=== PATIENT | female | born 1950 | race Caucasian/White ===

== ENCOUNTER 2018-09-17 22:43 | Inpatient (IN) | payer MEDICARE, MEDICAID | END 2018-09-19 12:20 | disposition home or self-care (01) | LOC: ED HOLD 09-18 01:04 → ER 22:43 → ICU 2S 09-18 03:23 | DX: I13.2 Hypertensive heart and chronic kidney disease with heart failure and with stage 5 chronic kidney disease, or end stage renal disease (principal); J96.00 Acute respiratory failure, unspecified whether with hypoxia or hypercapnia; N18.6 End stage renal disease; I16.9 Hypertensive crisis, unspecified; I50.9 Heart failure, unspecified ==

== ENCOUNTER 2019-02-04 06:29 | Day surgery (SDC) | payer MEDICARE, MEDICAID ==
[~2019-02-04 06:29] MED LIST: AMLO10TA4 PO; ATOR40TA PO; FAMO20TA8 PO; METO-411 PO; SEVE800T8 PO
[2019-02-04 07:30] VITALS: BP 116/81
[2019-02-04 08:36] LABS: ALBUMIN 3.7 G/DL (3.4-5.0); ANION GAP 11 (8-16); BLOOD UREA NITROGEN 41 MG/DL (7-18); BUN/CREATININE RATIO 4.9 (6.6-38.0); CALCIUM 10.2 MG/DL (8.5-10.1); CHLORIDE 101 MMOL/L (99-107); CREATININE 8.38 MG/DL (0.40-0.90); POTASSIUM 4.5 MMOL/L (3.5-5.1); SODIUM 143 MMOL/L (135-145); TOTAL CARBON DIOXIDE 31.2 MMOL/L (24-32); eGFR 6 ML/MIN
[2019-02-04 08:44] LABS: GLUCOSE 112 MG/DL (70-104)
[2019-02-04] MEDS ORDERED: fentaNYL/PF 50MCG/1 ML 2ML syringe IV PRN (08:45)
[2019-02-04] MEDS ORDERED: LIDOcaine 1% (10mg/ml) 2ml vial SQ ONE (08:45)
[2019-02-04] MEDS ORDERED: midazolam 2 mg/2 ml injection IV PRN (08:45)
[2019-02-04] MEDS ORDERED: heparin 1,000 UNITS/NS 500ml 500 ML ICATH ONE (08:45)
[2019-02-04] MEDS ORDERED: LIDOcaine 1%/PF 5ML 10 MG/ML VIAL ONE (09:09)
[2019-02-04] MEDS ORDERED: heparin 1,000 UNITS/NS 500ml 500 ML ONE (09:10)
[2019-02-04] MEDS ORDERED: iohexol 300mg/ml 100ml inj. ONE (09:10)
[2019-02-04] MEDS ORDERED: midazolam 2 mg/2 ml injection ONE (09:10)
[2019-02-04] MEDS ORDERED: fentaNYL/PF 50MCG/1 ML 2ML syringe ONE (09:10)
[2019-02-04 09:25] LABS: BASOPHILS % (AUTO) 0.8 % (0-1); EOSINOPHILS # (AUTO) 0.1 X10'3 (0-0.9); EOSINOPHILS % (AUTO) 2.6 % (0-6); HEMATOCRIT 36.5 % (35.0-45.0); HEMOGLOBIN 12.1 g/dl (12.0-16.0); LYMPHOCYTES # (AUTO) 1.6 X10'3 (1.1-4.8); MEAN CORPUSCULAR HEMOGLOBIN 31.3 PG (27.0-31.0); MEAN CORPUSCULAR HGB CONC 33.2 g/dL (33.0-36.5); MEAN CORPUSCULAR VOLUME 94.2 FL (78-98); MONOCYTES # (AUTO) 0.3 X10'3 (0-0.9); MONOCYTES % (AUTO) 5.5 % (2-12); NEUTROPHILS % (AUTO) 59.1 % (42-75); PLATELET COUNT 162 X10'3 (140-440); RED BLOOD COUNT 3.87 X10'6 (4.20-5.60); RED CELL DISTRIBUTION WIDTH 17.2 % (11.5-14.5); WHITE BLOOD COUNT 5.1 X10'3 (4.5-11.0)
== END 2019-02-04 11:35 | disposition home or self-care (01) ==
LOC: SSTAY O 06:29
PROVIDERS: ATTEND Radiology Diagnostic Radiology
DX: E11.22 Type 2 diabetes mellitus with diabetic chronic kidney disease (principal); N18.6 End stage renal disease; Z79.899 Other long term (current) drug therapy
CPT/HCPCS: 36415; 36901; 80048; 85025; 85610; 99152; C1769; C1894; J1644; J2250; J3010; Q9967; 99153

== ENCOUNTER 2019-04-21 10:29 | Day surgery (SDC) | payer MEDICARE, MEDICAID ==
[2019-04-21] VITALS (8 sets, daily range): BP systolic 136–162; BP diastolic 81–88
[~2019-04-21] VITALS: Ht 165.1 cm; Wt 98.7 kg
[~2019-04-21 10:29] MED LIST changes: +ALBU8.5H8 INH; -AMLO10TA4 PO; +DOCUMENT DATE & TIME OF BETA-BLOCKER PO ONE; -FAMO20TA8 PO; +LISI40TA4 PO; +NIFE90TA2 PO; -SEVE800T8 PO; +cefazolin/dext.iso 2gm/50ml 50 ML IV ONE; +famotidine 20mg tablet PO ONE; +normal saline 1000ml 1,000 ML IV SCH
[2019-04-21] MEDS ORDERED: BUPIVAcaine/PF 2.5mg/ml (0.25%) 10ml vial ONE (10:31)
[2019-04-21] MEDS ORDERED: heparin 10,000 units/1 ML INJ ONE (10:31)
[2019-04-21 11:29] LABS: BASOPHILS % (AUTO) 0.8 % (0-1); EOSINOPHILS # (AUTO) 0.2 X10'3 (0-0.9); EOSINOPHILS % (AUTO) 5.2 % (0-6); LYMPHOCYTES # (AUTO) 1.2 X10'3 (1.1-4.8); LYMPHOCYTES % (AUTO) 28.7 % (21-51); MEAN CORPUSCULAR HEMOGLOBIN 31.6 PG (27.0-31.0); MEAN CORPUSCULAR HGB CONC 34.1 g/dL (33.0-36.5); MEAN CORPUSCULAR VOLUME 92.8 FL (78-98); MEAN PLATELET VOLUME 7.7 FL (7.4-10.4); MONOCYTES # (AUTO) 0.3 X10'3 (0-0.9); MONOCYTES % (AUTO) 6.6 % (2-12); NEUTROPHILS # (AUTO) 2.5 X10'3 (1.8-7.7); NEUTROPHILS % (AUTO) 58.7 % (42-75); PRE OP HEMATOCRIT 33.9 % (35.0-45.0); PRE OP HEMOGLOBIN 11.5 g/dL (12.0-16.0); PRE OP PLATELET COUNT 222 X10'3 (140-440); RED BLOOD COUNT 3.65 X10'6 (4.20-5.60); RED CELL DISTRIBUTION WIDTH 16.9 % (11.5-14.5)
[2019-04-21 11:44] LABS: ALBUMIN/GLOBULIN RATIO 0.9 (1.1-1.5); ALKALINE PHOSPHATASE 190 IU/L (46-116); BLOOD UREA NITROGEN 23 MG/DL (7-18); BUN/CREATININE RATIO 4.4 (6.6-38.0); CALCIUM 9.6 MG/DL (8.5-10.1); CHLORIDE 101 MMOL/L (99-107); CREATININE 5.23 MG/DL (0.40-0.90); PRE OP ALT 22 U/L (30-65); PRE OP ANION GAP 8 (8-16); PRE OP AST 16 U/L (10-37); PRE OP BILIRUB, TOTAL 0.7 MG/DL (0.0-1.0); PRE OP GLUCOSE 94 MG/DL (70-104); PRE OP POTASSIUM 3.7 MMOL/L (3.4-5.1); PRE OP SODIUM 144 MMOL/L (135-145); TOTAL CARBON DIOXIDE 35.4 MMOL/L (24-32); TOTAL PROTEIN 8.6 G/DL (6.4-8.2); eGFR 10 ML/MIN
[2019-04-21] MEDS ORDERED: labetalol 20mg/4ml (5mg/ml) syringe IV ONE (11:56)
[2019-04-21] MEDS ORDERED: sevoflurane 250ml liquid IH ONE (11:56)
[2019-04-21] MEDS ORDERED: ringers solution, lacted 1,000 ML IV SCH (11:56)
[2019-04-21] MEDS ORDERED: fentaNYL/PF 50MCG/1 ML 2ML syringe ONE (11:58)
[2019-04-21] MEDS ORDERED: midazolam 2 mg/2 ml injection ONE (11:58)
[2019-04-21] MEDS ORDERED: propofol inj 20 ML IV ONE ×2 (11:58→13:15)
[2019-04-21] MEDS ORDERED: proCHLORperazine 10 MG/2 ml inj IV PRN (12:00)
[2019-04-21] MEDS ORDERED: ondansetron/PF 4mg/2ml inj IV PRN (12:00)
[2019-04-21] MEDS ORDERED: morphine 4 MG/ML inj SYRINge IV PRN ×2 (12:00)
[2019-04-21] MEDS ORDERED: meperidine/PF 25mg/ml syringe IV PRN ×2 (12:00)
[2019-04-21] MEDS ORDERED: bacitracin 15gm ointment TP ONE (13:01)
--- NOTE | 2019-04-21 13:20 | NUR ---
Received from OR via [facility], accompanied by Anesthesiologist LIZET and report given by Anesthesiolgist. PT DROWSY, OXYGENATING WELL ON 10 LPM O2 VIA MASK, NO RESP DISTRESS NOTED. PT DENIES NAUSEA, C/O 10/ RUE PAIN. MEDICATED PRN, SEE EMAR. LOYDA KAISER DSG TO RUE, CDI. RADIAL PULSES PALP. VSS
[2019-04-21] MEDS: meperidine/PF 25mg/ml syringe IV PRN ×2 (13:30→13:45)
--- NOTE | 2019-04-21 14:40 | NUR ---
AWAKE VS WNL PAIN DECREASED AFTER IV MEDS. TOLERATES LUNCH SANDWICH. DSG DI, FINGERS WARM GOOD CAP REFILL. HOME WITH [facility]. DISCHI INSTR GIVEN TO PT AND UNDERSTOOD. HOME
== END 2019-04-21 14:40 | disposition home or self-care (01) ==
LOC: PAS 10:29
PROVIDERS: ATTEND Surgery
DX: I77.0 Arteriovenous fistula, acquired (principal); I12.0 Hypertensive chronic kidney disease with stage 5 chronic kidney disease or end stage renal disease; N18.6 End stage renal disease; J45.909 Unspecified asthma, uncomplicated; M19.90 Unspecified osteoarthritis, unspecified site; E66.9 Obesity, unspecified; Z68.36 Body mass index [BMI] 36.0-36.9, adult; Z87.440 Personal history of urinary (tract) infections; Z98.890 Other specified postprocedural states; Z90.710 Acquired absence of both cervix and uterus; Z90.5 Acquired absence of kidney; Z87.891 Personal history of nicotine dependence; Z79.899 Other long term (current) drug therapy; Z82.49 Family history of ischemic heart disease and other diseases of the circulatory system; Z80.9 Family history of malignant neoplasm, unspecified
CPT/HCPCS: 35011; 36415; 80053; 85025; J1644; J2175; J2250; J2704; J3010; J3490; J7030; J7040; J7120; A4215; A4618; A6446; A7000

== ENCOUNTER 2019-04-25 20:38 | Inpatient (IN) | payer MEDICARE, MEDICAID ==
[~2019-04-25] VITALS: Ht 165.1 cm; Wt 101.1 kg
[~2019-04-25 20:38] MED LIST changes: -DOCUMENT DATE & TIME OF BETA-BLOCKER PO ONE; -cefazolin/dext.iso 2gm/50ml 50 ML IV ONE; -famotidine 20mg tablet PO ONE; -normal saline 1000ml 1,000 ML IV SCH
[2019-04-25] MEDS ORDERED: aspirin 81mg tab.chew PO ONE (21:10)
[2019-04-25] MEDS ORDERED: methylPREDNISolone sod succ 125mg/2ml vial IV ONE (21:10)
[2019-04-25 21:36] LABS: BASOPHILS % (AUTO) 0.7 % (0-1); EOSINOPHILS # (AUTO) 0.2 X10'3 (0-0.9); EOSINOPHILS % (AUTO) 3.6 % (0-6); HEMATOCRIT 26.2 % (35.0-45.0); HEMOGLOBIN 8.9 g/dl (12.0-16.0); LYMPHOCYTES # (AUTO) 1.7 X10'3 (1.1-4.8); LYMPHOCYTES % (AUTO) 25.5 % (21-51); MEAN CORPUSCULAR HEMOGLOBIN 31.7 PG (27.0-31.0); MEAN CORPUSCULAR HGB CONC 34.1 g/dL (33.0-36.5); MEAN CORPUSCULAR VOLUME 92.9 FL (78-98); MEAN PLATELET VOLUME 8.6 FL (7.4-10.4); MONOCYTES # (AUTO) 0.3 X10'3 (0-0.9); MONOCYTES % (AUTO) 4.1 % (2-12); NEUTROPHILS # (AUTO) 4.5 X10'3 (1.8-7.7); NEUTROPHILS % (AUTO) 66.1 % (42-75); PLATELET COUNT 210 X10'3 (140-440); RED BLOOD COUNT 2.82 X10'6 (4.20-5.60); RED CELL DISTRIBUTION WIDTH 16.1 % (11.5-14.5); WHITE BLOOD COUNT 6.9 X10'3 (4.5-11.0)
[2019-04-25 21:42] LABS: PARTIAL THROMBOPLASTIN TIME 25 SECONDS (22-32)
[2019-04-25 22:01] LABS: ALANINE AMINOTRANSFERASE 7 U/L (12-78); ALBUMIN 3.3 G/DL (3.4-5.0); ALBUMIN/GLOBULIN RATIO 0.9 (1.1-1.5); ANION GAP 11 (8-16); ASPARTATE AMINO TRANSFERASE 22 U/L (10-37); BILIRUBIN,TOTAL 0.2 MG/DL (0.1-1.0); BLOOD UREA NITROGEN 63 MG/DL (7-18); BUN/CREATININE RATIO 6.2 (6.6-38.0); CALCIUM 8.6 MG/DL (8.5-10.1); CHLORIDE 102 MMOL/L (99-107); CREATININE 10.24 MG/DL (0.40-0.90); GLUCOSE 151 MG/DL (70-104); POTASSIUM 3.5 MMOL/L (3.5-5.1); SODIUM 142 MMOL/L (135-145); TOTAL CARBON DIOXIDE 28.6 MMOL/L (24-32); eGFR 5 ML/MIN
[2019-04-25 22:15] LABS: ALKALINE PHOSPHATASE 155 IU/L (46-116); MAGNESIUM 1.8 MG/DL (1.5-2.4); PHOSPHORUS 4.5 MG/DL (2.3-4.5)
--- NOTE | 2019-04-25 22:30 | NUR ---
EDMD PATEE MADE AWARE OF PT HIGH BP (173/97). NO NEW ORDERS AT THIS TIME. WILL CONTINUE TO MONITOR.
[2019-04-25] MEDS ORDERED: CefTRIAXone/D5W-Rocephin 1gm 50 ML IV ONE (23:15)
--- NOTE | 2019-04-25 23:30 | NUR ---
BLOOD CULTURES ORDERED DUE TO GIVING PT ROCEPHIN. CULTURES DRAWN BEFORE ANTIBIOTIC WAS STARTED.
[2019-04-26] MEDS ORDERED: labetalol 20mg/4ml (5mg/ml) syringe IV ONE (00:35)
[2019-04-26] MEDS ORDERED: ondansetron/PF 4mg/2ml inj IV PRN (00:40)
[2019-04-26] MEDS ORDERED: acetaminophen 650mg rectal suppository RC PRN (00:40)
[2019-04-26] MEDS ORDERED: albuterol 2.5 MG/3 ML nebule NEB PRN ×2 (00:40→02:20)
[2019-04-26] MEDS ORDERED: acetaminophen 325mg tablet PO PRN ×2 (00:40)
[2019-04-26] MEDS ORDERED: hydrALAZINE 20mg/ml inj. IV ONE (01:35)
[2019-04-26] MEDS ORDERED: nitroGLYCERIN 0.4mg/hour patch TD ONE (01:35)
--- NOTE | 2019-04-26 01:37 | NUR ---
CALLED JUNE DUE TO PT BLOOD PRESSURE CONTINUES TO BE HIGH (172/88). PER , SHE WILL PUT ORDER IN SOON.
[2019-04-26] MEDS: methylPREDNISolone sod succ/PF 40mg inj. IV SCH ×4 (02:13→20:36)
[2019-04-26] MEDS: azithromycin/NS 500mg/250ml 250 ML IV SCH ×2 (02:32→07:42)
[2019-04-26 04:19] LABS: ALANINE AMINOTRANSFERASE 7 U/L (12-78); ALBUMIN 3.3 G/DL (3.4-5.0); ALBUMIN/GLOBULIN RATIO 0.8 (1.1-1.5); ALKALINE PHOSPHATASE 169 IU/L (46-116); ANION GAP 19 (8-16); ASPARTATE AMINO TRANSFERASE 22 U/L (10-37); BILIRUBIN,TOTAL 0.2 MG/DL (0.1-1.0); BLOOD UREA NITROGEN 65 MG/DL (7-18); BUN/CREATININE RATIO 6.3 (6.6-38.0); CHLORIDE 100 MMOL/L (99-107); GLUCOSE 225 MG/DL (70-104); POTASSIUM 3.9 MMOL/L (3.5-5.1); SODIUM 143 MMOL/L (135-145); TOTAL CARBON DIOXIDE 23.8 MMOL/L (24-32); TOTAL PROTEIN 7.2 G/DL (6.4-8.2); eGFR 4 ML/MIN
[2019-04-26 04:22] LABS: PARTIAL THROMBOPLASTIN TIME 23 SECONDS (22-32)
[2019-04-26 04:25] LABS: MAGNESIUM 1.7 MG/DL (1.5-2.4)
[2019-04-26 05:04] VITALS: BP 144/69
[2019-04-26 05:16] LABS: BASOPHILS % (AUTO) 0.1 % (0-1); EOSINOPHILS % (AUTO) 0.1 % (0-6); HEMATOCRIT 26.5 % (35.0-45.0); LYMPHOCYTES # (AUTO) 0.5 X10'3 (1.1-4.8); LYMPHOCYTES % (AUTO) 8.5 % (21-51); MEAN CORPUSCULAR HEMOGLOBIN 31.5 PG (27.0-31.0); MEAN CORPUSCULAR HGB CONC 33.8 g/dL (33.0-36.5); MEAN CORPUSCULAR VOLUME 93.3 FL (78-98); MEAN PLATELET VOLUME 8.8 FL (7.4-10.4); MONOCYTES % (AUTO) 0.7 % (2-12); NEUTROPHILS # (AUTO) 5.2 X10'3 (1.8-7.7); NEUTROPHILS % (AUTO) 90.6 % (42-75); PLATELET COUNT 217 X10'3 (140-440); RED BLOOD COUNT 2.84 X10'6 (4.20-5.60); RED CELL DISTRIBUTION WIDTH 16.6 % (11.5-14.5); WHITE BLOOD COUNT 5.7 X10'3 (4.5-11.0)
--- NOTE | 2019-04-26 06:46 | NUR ---
Problems reprioritized. Patient report given, questions answered & plan of care reviewed with CHARLEY. Addendum: 04/26/19 at 0647 by Timmy Miranda RN Amended: Links added.
--- NOTE | 2019-04-26 06:56 | NUR ---
Patient in room [facility]KAR 356. I have received report from Edd CHOWDHURY and had the opportunity to ask questions and assume patient care.
[2019-04-26] MEDS: CefTRIAXone 2gm/D5W 50ml 50 ML IV SCH (07:42)
[2019-04-26] MEDS ORDERED: normal saline 1000ml 250 ML IV PRN (07:58)
[2019-04-26 08:00] VITALS: BP 142/76
[2019-04-26] MEDS: docusate sod 100mg capsule PO SCH ×2 (08:00→20:37)
[2019-04-26] MEDS ORDERED: LIDOcaine 1% (10mg/ml) 2ml vial SQ ONE (08:00)
[2019-04-26] MEDS ORDERED: epoetin 20,000 units/ml inj IV ONE (08:00)
[2019-04-26] MEDS: atorvastatin 20mg tablet PO SCH (08:05)
[2019-04-26] MEDS: famotidine 20mg tablet PO SCH ×2 (08:06→20:37)
[2019-04-26] MEDS: NIFEdipine XL 30mg tablet PO SCH (08:06)
[2019-04-26] MEDS: lisinopril 20mg tablet PO SCH ×2 (08:08→20:37)
[2019-04-26] MEDS: heparin, porcine 5000 units/ml vial SQ SCH ×2 (08:12→20:36)
[2019-04-26] MEDS: ipratropium/albuterol 3ml nebule NEB SCH ×3 (09:04→20:59)
[2019-04-26 11:00] VITALS: BP 135/61
--- NOTE | 2019-04-26 11:25 | NUR ---
Student Medication Administration: For this medication-pass time frame, all medication were reviewed, dispensed, administered and documented per hospital policy by Amanda manager nursing home.
--- NOTE | 2019-04-26 12:02 | NUR ---
Patient in room [facility]K[facility] 356. I have received report from Edd CHOWDHURY and had the opportunity to ask questions and assume patient care. Addendum: 04/26/19 at 1204 by Amanda Mcknight STUDENT -[facility] Backtimed to 0630 LDGRISELDA
--- NOTE | 2019-04-26 12:03 | NUR ---
Student documentation: I have reviewed and agree with all interventions, assessments performed and documented by Amanda, practical nursing faculty.
--- NOTE | 2019-04-26 12:04 | NUR ---
Problems reprioritized. Patient report given, questions answered & plan of care reviewed with Lisseth CHOWDHURY.
--- NOTE | 2019-04-26 17:53 | NUR ---
reviewed student nurse charting
[2019-04-26 18:00] VITALS: BP 143/71
--- NOTE | 2019-04-26 18:00 | NUR ---
Patient in room [facility] 356. I have received report from LUCIANA Montanez and had the opportunity to ask questions and assume patient care. Addendum: 04/26/19 at 2313 by Felicity Chacon RN Amended: Links added.
--- NOTE | 2019-04-26 18:45 | NUR ---
Problems reprioritized. Patient report given, questions answered & plan of care reviewed with Andrés CHOWDHURY.
[2019-04-26] MEDS: metoprolol succinate 25mg (24-HOUR) SR. Tablet PO SCH (20:42)
--- NOTE | 2019-04-26 22:00 | NUR ---
Talked to June about covering pt's blood sugars or not. She wants us to check BG ACHS and if the sugars are high, ask the special certificate dictator if he wants to start insulin protocol or not. Pt is supposed to be discharged today.
[2019-04-26 23:49] VITALS: BP 147/66
[2019-04-27] MEDS: methylPREDNISolone sod succ/PF 40mg inj. IV SCH ×2 (02:42→09:15)
[2019-04-27 05:26] LABS: BASOPHILS % (AUTO) 0.1 % (0-1); EOSINOPHILS % (AUTO) 0.1 % (0-6); HEMATOCRIT 22.7 % (35.0-45.0); HEMOGLOBIN 7.7 g/dl (12.0-16.0); LYMPHOCYTES # (AUTO) 0.8 X10'3 (1.1-4.8); LYMPHOCYTES % (AUTO) 13.8 % (21-51); MEAN CORPUSCULAR HEMOGLOBIN 31.6 PG (27.0-31.0); MEAN CORPUSCULAR HGB CONC 33.7 g/dL (33.0-36.5); MEAN CORPUSCULAR VOLUME 93.8 FL (78-98); MEAN PLATELET VOLUME 8.7 FL (7.4-10.4); MONOCYTES # (AUTO) 0.1 X10'3 (0-0.9); PLATELET COUNT 216 X10'3 (140-440); RED BLOOD COUNT 2.43 X10'6 (4.20-5.60); WHITE BLOOD COUNT 5.9 X10'3 (4.5-11.0)
--- NOTE | 2019-04-27 06:00 | NUR ---
All orientee charting reviewed. I agree with Felicity's physical assessment.
[2019-04-27 06:01] LABS: ALBUMIN 3.1 G/DL (3.4-5.0); ANION GAP 16 (8-16); BLOOD UREA NITROGEN 89 MG/DL (7-18); BUN/CREATININE RATIO 7.2 (6.6-38.0); CHLORIDE 100 MMOL/L (99-107); CREATININE 12.33 MG/DL (0.40-0.90); GLUCOSE 159 MG/DL (70-104); MAGNESIUM 1.9 MG/DL (1.5-2.4); PHOSPHORUS 5.1 MG/DL (2.3-4.5); POTASSIUM 4.7 MMOL/L (3.5-5.1); SODIUM 141 MMOL/L (135-145); TOTAL CARBON DIOXIDE 24.7 MMOL/L (24-32); eGFR 4 ML/MIN
--- NOTE | 2019-04-27 06:45 | NUR ---
Problems reprioritized. Patient report given, questions answered & plan of care reviewed with LUCIANA Talbot.
[2019-04-27 07:09] VITALS: BP 149/70
--- NOTE | 2019-04-27 08:00 | NUR ---
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 No notes recorded to see what the cause or intervention might be. Called dialysis to question why the patient was not on her normal MWF dialysis schedule and to understand the circumstances of yesterday's dialysis session. bingo caller dialysis nurse Denisse states that some clots were pulled from the fistula, but that there was no obstructing clot and that this could be a normal thing. She stated that the two dialysis nurses working with the patient could not access the fistula and so dialysis was rescheduled for today around 10am. The dialysis center was hoping the patient would be discharged soon that she could resume her normal dialysis schedule and the outpatient center. Denisse requested that BP meds be held, sub Q heparin be given. Pt. disagreed with BP meds being held. SBP 148 this AM and she states she always take her BP medications before dialysis. Called Denisse back and she is aware that pt. has taken her BP meds.
[2019-04-27] MEDS: ipratropium/albuterol 3ml nebule NEB SCH ×3 (08:15→21:00)
[2019-04-27] MEDS ORDERED: epoetin 20,000 units/ml inj IV ONE (08:30)
[2019-04-27] MEDS ORDERED: normal saline 1000ml 250 ML IV PRN (08:30)
[2019-04-27] MEDS ORDERED: LIDOcaine 1% (10mg/ml) 2ml vial SQ ONE (08:30)
[2019-04-27] MEDS: atorvastatin 20mg tablet PO SCH (09:12)
[2019-04-27] MEDS: heparin, porcine 5000 units/ml vial SQ SCH ×2 (09:12→20:17)
[2019-04-27] MEDS: famotidine 20mg tablet PO SCH ×2 (09:13→20:16)
[2019-04-27] MEDS: azithromycin/NS 500mg/250ml 250 ML IV SCH (09:14)
[2019-04-27] MEDS: CefTRIAXone 2gm/D5W 50ml 50 ML IV SCH (09:15)
[2019-04-27] MEDS: docusate sod 100mg capsule PO SCH ×2 (09:15→20:16)
[2019-04-27] MEDS: lisinopril 20mg tablet PO SCH ×2 (09:18→19:12)
[2019-04-27] MEDS: NIFEdipine XL 30mg tablet PO SCH (09:18)
[2019-04-27 11:20] VITALS: BP 145/71
--- NOTE | 2019-04-27 13:28 | NUR ---
SPOKE WITH MD CASTILLO ON THE TELEPHONE TO DISCUSS HIGH BLOOD SUGARS, DIET, FLUID RESTRICTION, AND POC. GAVE ORDER TO DC SOLUMEDROL. STATED PT. INSISTS ON HAVING A REGULAR DIET AND NOT TO CHANGE TO A RENAL DIET, HOWEVER HE DID WANT TO PLACE A 2l DAILY FLUID RESTRICTION ON PT. STATED HE WOULD KNOW MORE ABOUT AND DISCUSS POC AFTER ASSESSING PT WHEN HE ROUNDS LATER THIS EVENING.
[2019-04-27] MEDS ORDERED: heparin 1,000unit/ml 10ml vial 10 ML IV ONE (15:56)
[2019-04-27] MEDS ORDERED: heparin 1,000 units/ml 10ml inj IV ONE (16:00)
--- NOTE | 2019-04-27 16:40 | NUR ---
AWARE OF h&h. ORDERED A UNIT OF BLOOD IN AM BUT PT. IS [employer] WITNESS AND DOES NOT ACCEPT BLOOD PRODUCTS. MD CASTILLO AWARE AND CANCELED BLOOD TRANSFUSION ORDERS
--- NOTE | 2019-04-27 18:14 | NUR ---
Problems reprioritized. Patient report given, questions answered & plan of care reviewed with HELENA CHOWDHURY.
--- NOTE | 2019-04-27 18:30 | NUR ---
Patient in room [facility] 356. I have received report from MARY CHOWDHURY and had the opportunity to ask questions and assume patient care.
[2019-04-27 19:00] VITALS: BP 172/82
[2019-04-27 20:10] VITALS: BP 158/80
[2019-04-27] MEDS: lactobacillus rhamnosus 10,000 MMU CELLS/CAPSULE PO SCH (20:16)
[2019-04-27] MEDS: metoprolol succinate 25mg (24-HOUR) SR. Tablet PO SCH (20:17)
[2019-04-28] VITALS: BP 182/87
[2019-04-28] MEDS: hydrALAZINE 20mg/ml inj. IV PRN ×2 (00:04→08:20)
[2019-04-28] MEDS ORDERED: lactulose 20gm/30ml cup PO PRN (00:40)
[2019-04-28] MEDS ORDERED: AZI25OT PO (01:39)
[2019-04-28 02:06] VITALS: BP 184/87
--- NOTE | 2019-04-28 02:10 | NUR ---
CALLED BRANCH OFFICE MANAGER JUNE AND WAS INFORMED OF HIGH BP 184/87 AND HYDRALAZINE 10MG WAS ALREADY GIVEN AT MIDNIGHT FOR BP 182/84 WITH ORDER TO GIVE EXTRA DOSE OF HYDRALAZINE 10MG IV NOW.
[2019-04-28] MEDS ORDERED: HYDR-4069 PO (02:13)
[2019-04-28] MEDS ORDERED: hydrALAZINE 20mg/ml inj. IV ONE (02:15)
--- NOTE | 2019-04-28 03:30 | NUR ---
VITAL SIGNS RECHECKED AT THIS TIME BP 148/87 HR 89 RR 18 SAT 95@RA.
[2019-04-28 03:38] VITALS: BP 148/87
[2019-04-28 05:28] LABS: BASOPHILS % (AUTO) 0.2 % (0-1); EOSINOPHILS % (AUTO) 0.2 % (0-6); HEMATOCRIT 24.9 % (35.0-45.0); HEMOGLOBIN 8.4 g/dl (12.0-16.0); LYMPHOCYTES % (AUTO) 19.9 % (21-51); MEAN CORPUSCULAR HEMOGLOBIN 31.9 PG (27.0-31.0); MEAN CORPUSCULAR HGB CONC 33.7 g/dL (33.0-36.5); MEAN CORPUSCULAR VOLUME 94.6 FL (78-98); MONOCYTES # (AUTO) 0.8 X10'3 (0-0.9); MONOCYTES % (AUTO) 7.7 % (2-12); NEUTROPHILS # (AUTO) 7.1 X10'3 (1.8-7.7); PLATELET COUNT 238 X10'3 (140-440); RED BLOOD COUNT 2.63 X10'6 (4.20-5.60); RED CELL DISTRIBUTION WIDTH 17.4 % (11.5-14.5); WHITE BLOOD COUNT 9.8 X10'3 (4.5-11.0)
[2019-04-28 06:15] LABS: ALBUMIN 3.1 G/DL (3.4-5.0); ANION GAP 12 (8-16); BLOOD UREA NITROGEN 60 MG/DL (7-18); CALCIUM 8.7 MG/DL (8.5-10.1); CHLORIDE 102 MMOL/L (99-107); CREATININE 8.52 MG/DL (0.40-0.90); GLUCOSE 118 MG/DL (70-104); MAGNESIUM 1.8 MG/DL (1.5-2.4); PHOSPHORUS 4.3 MG/DL (2.3-4.5); POTASSIUM 3.8 MMOL/L (3.5-5.1); SODIUM 140 MMOL/L (135-145); TOTAL CARBON DIOXIDE 26.5 MMOL/L (24-32); eGFR 6 ML/MIN
--- NOTE | 2019-04-28 06:30 | NUR ---
Problems reprioritized. Patient report given, questions answered & plan of care reviewed with MERRICK RN.
--- NOTE | 2019-04-28 06:31 | NUR ---
Patient in room [facility] 356. I have received report from LUCIO VALDES RN and had the opportunity to ask questions and assume patient care.
[2019-04-28] MEDS: lactobacillus rhamnosus 10,000 MMU CELLS/CAPSULE PO SCH (07:21)
[2019-04-28] MEDS: lisinopril 20mg tablet PO SCH (07:22)
[2019-04-28] MEDS: NIFEdipine XL 30mg tablet PO SCH (07:23)
[2019-04-28] MEDS: famotidine 20mg tablet PO SCH (07:23)
[2019-04-28] MEDS: CefTRIAXone 2gm/D5W 50ml 50 ML IV SCH (07:23)
[2019-04-28] MEDS: atorvastatin 20mg tablet PO SCH (07:23)
[2019-04-28] MEDS: heparin, porcine 5000 units/ml vial SQ SCH (07:24)
[2019-04-28] MEDS: docusate sod 100mg capsule PO SCH (07:30)
[2019-04-28 07:45] VITALS: BP 161/84
[2019-04-28] MEDS ORDERED: azithromycin 250mg tablet PO SCH (08:00)
[2019-04-28 09:02] VITALS: BP 120/63
--- NOTE | 2019-04-28 09:04 | NUR ---
PATIENTS BLOOD PRESSURE UPON RECHECK 161/84, 10 MG IV HYDRALAZINE GIVEN, BP NOW 120/63. PT'S DAUGHTER HERE TO GIVE HER RIDE FOR DISCHARGE TO DIALYSIS APPT THIS AM.
== END 2019-04-28 09:32 | disposition home or self-care (01) | DRG 193 ==
LOC: ER 20:39 → ED HOLD 04-26 01:31 → SUR 3N 04-26 02:22
PROVIDERS: ADMIT Internal Medicine Critical Care Medicine; ATTEND Internal Medicine Critical Care Medicine
PROC: 5A1D70Z Performance of Urinary Filtration, Intermittent, Less than 6 Hours Per Day (ICD-10-PCS; principal; 2019-04-27)
DX: J18.1 Lobar pneumonia, unspecified organism (principal); N18.6 End stage renal disease; I12.0 Hypertensive chronic kidney disease with stage 5 chronic kidney disease or end stage renal disease; E78.00 Pure hypercholesterolemia, unspecified; E78.5 Hyperlipidemia, unspecified; F32.9 Major depressive disorder, single episode, unspecified; K21.9 Gastro-esophageal reflux disease without esophagitis; D64.9 Anemia, unspecified; Z79.899 Other long term (current) drug therapy; Z99.2 Dependence on renal dialysis; Z88.8 Allergy status to other drugs, medicaments and biological substances; Z86.73 Personal history of transient ischemic attack (TIA), and cerebral infarction without residual deficits; Z87.442 Personal history of urinary calculi; Z87.891 Personal history of nicotine dependence; Z90.5 Acquired absence of kidney
CPT/HCPCS: 36415; 71045; 80048; 80053; 82948; 83036; 83605; 83735; 83880; 84100; 84145; 84484; 85025; 85610; 85730; 87040; 87081; 93005; 93306; 94640; 94760; 96374; 99285; G0257; G0378; J0360; J0456; J0696; J1644; J2001; J2920; J2930; J3490; Q4081

== ENCOUNTER 2020-03-03 09:44 | Emergency (ER) | payer MEDICARE, MEDICAID ==
[~2020-03-03] VITALS: Ht 165.1 cm; Wt 96.4 kg
[~2020-03-03 09:44] MED LIST changes: +AZI25OT PO; +HYDR-4069 PO
[2020-03-03 09:52] VITALS: BP 103/67
[2020-03-03] MEDS ORDERED: acetaminophen 325mg tablet PO ONE (11:10)
== END 2020-03-03 11:27 | disposition home or self-care (01) ==
LOC: ER 09:44
DX: S93.432A Sprain of tibiofibular ligament of left ankle, initial encounter (principal); M25.572 Pain in left ankle and joints of left foot; M79.89 Other specified soft tissue disorders; E78.00 Pure hypercholesterolemia, unspecified; K21.9 Gastro-esophageal reflux disease without esophagitis; I12.9 Hypertensive chronic kidney disease with stage 1 through stage 4 chronic kidney disease, or unspecified chronic kidney disease; N18.9 Chronic kidney disease, unspecified; F32.9 Major depressive disorder, single episode, unspecified; Z86.73 Personal history of transient ischemic attack (TIA), and cerebral infarction without residual deficits; Z87.01 Personal history of pneumonia (recurrent); Z87.442 Personal history of urinary calculi; Z87.440 Personal history of urinary (tract) infections; Z98.890 Other specified postprocedural states; Z72.89 Other problems related to lifestyle; Z88.8 Allergy status to other drugs, medicaments and biological substances; Z79.2 Long term (current) use of antibiotics; Z79.899 Other long term (current) drug therapy; W01.0XXA Fall on same level from slipping, tripping and stumbling without subsequent striking against object, initial encounter; Y93.89 Activity, other specified; Y92.89 Other specified places as the place of occurrence of the external cause; Y99.8 Other external cause status
CPT/HCPCS: 73610; 99284

== ENCOUNTER 2020-11-16 12:09 | Day surgery (SDC) | payer MEDICARE, MEDICAID ==
[~2020-11-16] VITALS: Ht 165.1 cm; Wt 100.7 kg
[2020-11-16] VITALS (10 sets, daily range): BP systolic 88–178; BP diastolic 87–104
[~2020-11-16 12:09] MED LIST changes: +LISI40TA13 PO; -LISI40TA4 PO
[2020-11-16] MEDS ORDERED: normal saline 1000ml 1,000 ML IV PRN (12:40)
[2020-11-16] MEDS ORDERED: FLUT16SP26 (12:48)
[2020-11-16] MEDS ORDERED: CETI10TA18 PO (12:48)
[2020-11-16] MEDS ORDERED: HYDR-4070 PO (12:48)
[2020-11-16] MEDS ORDERED: SEVE800T7 PO (12:48)
[2020-11-16 13:39] LABS: BASOPHILS % (AUTO) 0.8 % (0-1); EOSINOPHILS # (AUTO) 0.1 X10'3 (0-0.9); EOSINOPHILS % (AUTO) 2.3 % (0-6); HEMATOCRIT 36.3 % (35.0-45.0); HEMOGLOBIN 11.9 g/dl (12.0-16.0); LYMPHOCYTES # (AUTO) 1.2 X10'3 (1.1-4.8); LYMPHOCYTES % (AUTO) 20.5 % (21-51); MEAN CORPUSCULAR HEMOGLOBIN 29.5 PG (27.0-31.0); MEAN CORPUSCULAR HGB CONC 32.9 g/dL (33.0-36.5); MEAN CORPUSCULAR VOLUME 89.8 FL (78-98); MEAN PLATELET VOLUME 8.5 FL (7.4-10.4); MONOCYTES # (AUTO) 0.3 X10'3 (0-0.9); MONOCYTES % (AUTO) 5.3 % (2-12); NEUTROPHILS # (AUTO) 4.1 X10'3 (1.8-7.7); NEUTROPHILS % (AUTO) 71.1 % (42-75); PLATELET COUNT 180 X10'3 (140-440); RED BLOOD COUNT 4.05 X10'6 (4.20-5.60); RED CELL DISTRIBUTION WIDTH 19.6 % (11.5-14.5); WHITE BLOOD COUNT 5.8 X10'3 (4.5-11.0)
[2020-11-16 13:46] LABS: ALBUMIN 3.7 G/DL (3.4-5.0); ANION GAP 16 (8-16); BLOOD UREA NITROGEN 78 MG/DL (7-18); BUN/CREATININE RATIO 6.1 (6.6-38.0); CALCIUM 8.2 MG/DL (8.5-10.1); CHLORIDE 98 MMOL/L (99-107); CREATININE 12.73 MG/DL (0.40-0.90); GLUCOSE 109 MG/DL (70-104); POTASSIUM 5.2 MMOL/L (3.5-5.1); SODIUM 140 MMOL/L (135-145); TOTAL CARBON DIOXIDE 26.3 MMOL/L (24-32); eGFR 4 ML/MIN
[2020-11-16 13:56] LABS: ANISOCYTOSIS 2+; ELLIPTOCYTES FEW; PLATELET ESTIMATE NORMAL
[2020-11-16 13:57] LABS: SCHISTOCYTES FEW
[2020-11-16] MEDS ORDERED: fentaNYL/PF 50MCG/1 ML 2ML syringe ONE ×2 (14:16→16:30)
[2020-11-16] MEDS ORDERED: LIDOcaine 1%/PF 5ML 10 MG/ML VIAL ONE ×3 (14:16→16:50)
[2020-11-16] MEDS ORDERED: midazolam 1 mg/ML 2ml injection ONE ×2 (14:16→16:30)
[2020-11-16] MEDS ORDERED: iohexol 300mg/ml 100ml inj. ONE (14:17)
[2020-11-16] MEDS ORDERED: heparin 1,000 UNITS/NS 500ml 500 ML ONE ×2 (14:17→16:15)
[2020-11-16] MEDS ORDERED: heparin 1,000unit/ml 10ml vial 10 ML ONE ×4 (14:59→18:50)
[2020-11-16] MEDS ORDERED: tPA-cathflo 2 MG/2 ml IV flush ONE (15:36)
[2020-11-16] MEDS ORDERED: hydrALAZINE 20mg/ml inj. IV ONE (16:43)
[2020-11-16] MEDS ORDERED: labetalol 20mg/4ml (5mg/ml) syringe IV ONE (18:50)
--- NOTE | 2020-11-16 19:00 | NUR ---
Spoke with angio RN who states that patient has stopped bleeding after 1.5 hours of manual pressure, will be returning to room. Notified RN that spoke to nursing booking supervisor and there is a room available if Dr. Mcgrath would like to admit. RN states that at this time patient has stopped bleeding and will not be needing admit. States to monitor patient for an hour and then discharge if site is stable. Will monitor when patient returns to floor.
--- NOTE | 2020-11-16 19:41 | NUR ---
PATIENT IN BED RESTING. BLOOD PULLING UNDER ARM NOTED, NURSE HELD PRESSURE AND ATTEMPTED TO CALL DR. MERA REGARDING THIS. NO ANSWER AT TIME.
--- NOTE | 2020-11-16 19:50 | NUR ---
CALL MADE TO REGARDING THIS BLEED AT [facility], PER DR. GONZALEZ (MD AVIATION ENGINEER) NEW ORDER FOR IV DDAVP, MEDICATION WAS UNSUCCESSFUL, PATIENT STILL BLEEDING AT [facility] PUNCTURE SITE. WILL CONTINUE TO HOLD MANUAL PRESSURE.
[2020-11-16] MEDS ORDERED: desmopressin inj. 30 MCG in normal saline 100ml IV soln 100 ML IV ONE (19:55)
[2020-11-16] MEDS ORDERED: gelatin sponge, absorbable (Gelfoam 100) sponge TP ONE (20:00)
--- NOTE | 2020-11-16 20:52 | NUR ---
CALL MADE TO DR. GONZALEZ REGARDING INABILITY TO STOP BLEEDING AT PUNCTURE SITE TO RIGHT UPPER ARM. PER MD, HE IS GOING TO CALL IR TEAM IN TO ASSIST WITH BLEEDING.
--- NOTE | 2020-11-16 21:15 | NUR ---
DR. GONZALEZ AT BEDSIDE, PER MD, HE IS SATISFIED WITH PRESSURE DRESSING TO RIGHT UPPER ARM. ALSO INSTRUCTED TO APPLY PRESSURE DRESSING OVER TDC, IT HAS SOME BLOOD POOLING WELL. PATIENTS DAUGHTER NUNU CALLED WITH AN UPDATE. WILL CONTINUE TO MONITOR.
[2020-11-16 21:28] LABS: BASOPHILS % (AUTO) 0.4 % (0-1); EOSINOPHILS % (AUTO) 0.4 % (0-6); HEMATOCRIT 33.7 % (35.0-45.0); HEMOGLOBIN 11.1 g/dl (12.0-16.0); LYMPHOCYTES % (AUTO) 12.5 % (21-51); MEAN CORPUSCULAR HEMOGLOBIN 29.6 PG (27.0-31.0); MEAN CORPUSCULAR HGB CONC 32.9 g/dL (33.0-36.5); MEAN CORPUSCULAR VOLUME 89.9 FL (78-98); MEAN PLATELET VOLUME 8.4 FL (7.4-10.4); MONOCYTES # (AUTO) 0.5 X10'3 (0-0.9); NEUTROPHILS # (AUTO) 6.3 X10'3 (1.8-7.7); NEUTROPHILS % (AUTO) 80.7 % (42-75); PLATELET COUNT 194 X10'3 (140-440); RED BLOOD COUNT 3.75 X10'6 (4.20-5.60); RED CELL DISTRIBUTION WIDTH 19.3 % (11.5-14.5); WHITE BLOOD COUNT 7.9 X10'3 (4.5-11.0)
--- NOTE | 2020-11-16 22:30 | NUR ---
PATIENT AMBULATED IN NUR WITH STEADY GAIT. PATIENTS DAUGHTER NUNU CALLED FOR RIDE. PATIENT HAS PRESSURE DRESSING TO BOTH PUNCTURE SITES TO RIGHT UPPER ARM, TO TDC, AND TO INSERTION SITE RIGHT LATERAL NECK. PATIENTS DAUGHTER INSTRUCTED TO BRING PATIENT TO ER IF BLEEDING OCCURS. WILL CONTINUE TO MONITOR PATIENT UNTIL DAUGHTER ARRIVES.
--- NOTE | 2020-11-16 23:00 | NUR ---
PATIENT ESCORTED OFF UNIT VIA WHEEL CHAIR TO PERSONAL VEHICLE. DISCHARGE INSTRUCTIONS REVIEW WITH DAUGHTER AND PATIENT. AGAIN, STRESSED IMPORTANCE OF INCREASED BLEEDING COULD BE AN EMERGENT SITUATION AND PATIENT NEEDS TO BE SEEN IN ER IF THIS OCCURS. PATIENT AND DAUGHTER BOTH VERBALIZED UNDERSTANDING.
== END 2020-11-16 23:10 | disposition home or self-care (01) ==
LOC: SSTAY O 12:09
PROVIDERS: ATTEND Radiology Diagnostic Radiology
DX: T82.868A Thrombosis due to vascular prosthetic devices, implants and grafts, initial encounter (principal); Z79.899 Other long term (current) drug therapy; Z79.01 Long term (current) use of anticoagulants; Z88.8 Allergy status to other drugs, medicaments and biological substances; Y83.2 Surgical operation with anastomosis, bypass or graft as the cause of abnormal reaction of the patient, or of later complication, without mention of misadventure at the time of the procedure; Y92.89 Other specified places as the place of occurrence of the external cause
CPT/HCPCS: 36415; 36558; 36905; 76937; 77001; 80048; 85025; 85610; 99152; 99153; C1725; C1750; C1769; C1894; J0360; J1644; J2250; J2597; J2997; J3010; Q9967; 85008; A9270

== ENCOUNTER 2021-08-28 00:11 | Inpatient (IN) | payer MEDICARE, MEDICAID ==
[~2021-08-28] VITALS: Ht 162.6 cm; Wt 81.0 kg
[~2021-08-28 00:11] MED LIST changes: +ALBU8.5H17 INH; -ALBU8.5H8 INH; -AZI25OT PO; +CETI10TA19 PO; +FLUT16SP26 NS; -HYDR-4069 PO; +HYDR-4070 PO; +SEVE800T7 PO
[2021-08-28] MEDS ORDERED: albuterol 2.5 MG/3 ML nebule NEB ONE (00:30)
[2021-08-28] MEDS ORDERED: levoFLOXACIN-Levaquin 500mg/D5 100 ML IV ONE (00:50)
[2021-08-28 01:08] LABS: BASOPHILS # (AUTO) 0.1 X10'3 (0-0.2); BASOPHILS % (AUTO) 0.5 % (0-1); EOSINOPHILS # (AUTO) 0.8 X10'3 (0-0.9); EOSINOPHILS % (AUTO) 6.1 % (0-6); HEMATOCRIT 33.4 % (35.0-45.0); HEMOGLOBIN 11.4 g/dl (12.0-16.0); LYMPHOCYTES # (AUTO) 3.8 X10'3 (1.1-4.8); LYMPHOCYTES % (AUTO) 29.6 % (21-51); MEAN CORPUSCULAR HEMOGLOBIN 30.8 PG (27.0-31.0); MEAN CORPUSCULAR HGB CONC 34.1 g/dL (33.0-36.5); MEAN CORPUSCULAR VOLUME 90.5 FL (78-98); MEAN PLATELET VOLUME 8.6 FL (7.4-10.4); MONOCYTES # (AUTO) 0.6 X10'3 (0-0.9); MONOCYTES % (AUTO) 4.6 % (2-12); NEUTROPHILS # (AUTO) 7.6 X10'3 (1.8-7.7); NEUTROPHILS % (AUTO) 59.2 % (42-75); PLATELET COUNT 274 X10'3 (140-440); RED BLOOD COUNT 3.69 X10'6 (4.20-5.60); RED CELL DISTRIBUTION WIDTH 16.9 % (11.5-14.5); WHITE BLOOD COUNT 12.8 X10'3 (4.5-11.0)
[2021-08-28 01:18] LABS: APTT 25 SECONDS (22-32)
[2021-08-28 01:19] LABS: ABG BASE EXCESS 5.5 mmol/L (-2.0-2.0); ABG HCO3 30.1 mmol/L (22.0-26.0); ABG OXYGEN SATURATION 96.9 % (94-97); ABG PCO2 (T) 42.4 mmHg (32.0-45.0); ABG PO2 (T) 90.9 mmHg (75.0-100.0); ALLEN'S TEST POSITIVE; FCOHb 0.5 % (0.0-3.9); FMetHb 0.3 % (0.0-1.5); FO2Hb 96.1 % (94-97); RESPIRATORY RATE 10 b/min; TOTAL HEMOGLOBIN 11.5 G/dl (12.0-16.0)
[2021-08-28 01:21] LABS: ALANINE AMINOTRANSFERASE 20 U/L (12-78); ALBUMIN 3.5 G/DL (3.4-5.0); ALBUMIN/GLOBULIN RATIO 0.8 (1.1-1.5); ALKALINE PHOSPHATASE 115 IU/L (46-116); ANION GAP 15 (8-16); ASPARTATE AMINO TRANSFERASE 17 U/L (10-37); BILIRUBIN,TOTAL 0.3 MG/DL (0.1-1.0); BLOOD UREA NITROGEN 57 MG/DL (7-18); CHLORIDE 97 MMOL/L (99-107); CREATININE 9.53 MG/DL (0.40-0.90); GLUCOSE 189 MG/DL (70-104); SODIUM 140 MMOL/L (135-145); TOTAL CARBON DIOXIDE 28.4 MMOL/L (24-32); TOTAL PROTEIN 7.8 G/DL (6.4-8.2); eGFR 4 ML/MIN
[2021-08-28] MEDS ORDERED: HYDROcodone/acetaminophen 5mg/325mg tablet PO PRN (02:30)
[2021-08-28] MEDS ORDERED: morphine 2 MG/ML inj. syringe IV PRN ×2 (02:30)
[2021-08-28] MEDS ORDERED: magnesium 2GM in 50ml NS 50 ML IV PRN (02:30)
[2021-08-28] MEDS ORDERED: magnesium Cl slow-release 64mg tablet PO PRN (02:30)
[2021-08-28] MEDS ORDERED: acetaminophen 325mg tablet PO PRN (02:30)
[2021-08-28] MEDS ORDERED: potassium CL 10mEq/100ml bag 100 ML IV PRN (02:30)
[2021-08-28] MEDS ORDERED: magnesium 4gm in 100ml NS 100 ML IV PRN (02:30)
[2021-08-28] MEDS ORDERED: HYDROcodone/acetaminophen 10/325mg tab PO PRN (02:30)
[2021-08-28] MEDS ORDERED: mag hydrox/Alum hydrox/simeth 30ml oral suspension PO PRN (02:30)
[2021-08-28] MEDS ORDERED: potassium Cl 20 mEq SR tablet PO PRN ×2 (02:30)
[2021-08-28] MEDS ORDERED: magnesium hydroxide 30ml (MOM) UD suspension PO PRN (02:30)
[2021-08-28] MEDS ORDERED: ondansetron/PF 4mg/2ml inj IV PRN (02:30)
[2021-08-28 04:30] LABS: MAGNESIUM 2.1 MG/DL (1.5-2.4); POTASSIUM 5.7 MMOL/L (3.5-5.1)
--- NOTE | 2021-08-28 05:02 | NUR ---
PAGER ID: [phone] MESSAGE: [id number] - Faith Lisa (bed 03) - 3hr Troponin 191
[2021-08-28] MEDS: K and/or MAG REPLACEMENT MC SCH ×2 (07:34→20:00)
--- NOTE | 2021-08-28 07:50 | NUR ---
Patient's daughter: Ericka Given generalized update.
[2021-08-28] MEDS: docusate sod 100mg capsule PO SCH ×2 (08:00→19:01)
[2021-08-28] MEDS: heparin, porcine 5000 units/ml vial SQ SCH ×2 (08:40→19:02)
[2021-08-28] MEDS ORDERED: fluticasone nasal spray 16GM bottle NS PRN (12:35)
[2021-08-28] MEDS ORDERED: cetirizine 10mg tablet PO PRN (12:50)
[2021-08-28] MEDS: sevelamer carbonate 800mg tablet PO SCH ×2 (13:00→19:00)
[2021-08-28] MEDS: albuterol 2.5 MG/3 ML nebule NEB SCH ×2 (15:13→20:34)
[2021-08-28 15:56] VITALS: BP 165/76
[2021-08-28 18:00] VITALS: BP 167/80
--- NOTE | 2021-08-28 18:20 | NUR ---
Problems reprioritized. Patient report given, questions answered & plan of care reviewed with Zahida CHOWDHURY, patient stable at transfer of care.
[2021-08-28] MEDS: hydrALAZINE 25 MG tablet PO SCH (19:01)
[2021-08-28] MEDS ORDERED: CefTRIAXone/D5W-Rocephin 1gm 50 ML IV SCH ×2 (20:55→20:58)
[2021-08-28] MEDS ORDERED: PERFLUTREN PROTEIN-A MICROSPHR (Optison) 0.22 MG/ML 3ML VIAL IV PRN (20:55)
[2021-08-28] MEDS: metoprolol succinate 25mg (24-HOUR) SR. Tablet PO SCH (21:32)
[2021-08-28 22:00] VITALS: BP 161/80
[2021-08-29 02:00] VITALS: BP 152/77
[2021-08-29 06:00] VITALS: BP 165/71
--- NOTE | 2021-08-29 06:00 | NUR ---
Patient in room PCU 3012. I have received report from Zahida CHOWDHURY and had the opportunity to ask questions and assume patient care.
--- NOTE | 2021-08-29 06:16 | NUR ---
Problems reprioritized. Patient report given, questions answered & plan of care reviewed with Marine CHOWDHURY.
[2021-08-29 06:46] LABS: BASOPHILS % (AUTO) 0.8 % (0-1); EOSINOPHILS # (AUTO) 0.2 X10'3 (0-0.9); EOSINOPHILS % (AUTO) 4.7 % (0-6); HEMATOCRIT 30.5 % (35.0-45.0); LYMPHOCYTES # (AUTO) 1.1 X10'3 (1.1-4.8); LYMPHOCYTES % (AUTO) 20.5 % (21-51); MEAN CORPUSCULAR HEMOGLOBIN 30.4 PG (27.0-31.0); MEAN CORPUSCULAR HGB CONC 32.9 g/dL (33.0-36.5); MEAN CORPUSCULAR VOLUME 92.2 FL (78-98); MEAN PLATELET VOLUME 8.7 FL (7.4-10.4); MONOCYTES # (AUTO) 0.4 X10'3 (0-0.9); MONOCYTES % (AUTO) 7.5 % (2-12); NEUTROPHILS # (AUTO) 3.4 X10'3 (1.8-7.7); NEUTROPHILS % (AUTO) 66.5 % (42-75); PLATELET COUNT 152 X10'3 (140-440); RED CELL DISTRIBUTION WIDTH 16.6 % (11.5-14.5); WHITE BLOOD COUNT 5.2 X10'3 (4.5-11.0)
[2021-08-29 07:06] LABS: ALANINE AMINOTRANSFERASE 10 U/L (12-78); ALBUMIN 2.8 G/DL (3.4-5.0); ALBUMIN/GLOBULIN RATIO 0.7 (1.1-1.5); ALKALINE PHOSPHATASE 85 IU/L (46-116); ANION GAP 14 (8-16); ASPARTATE AMINO TRANSFERASE 12 U/L (10-37); BILIRUBIN,TOTAL 0.5 MG/DL (0.1-1.0); BLOOD UREA NITROGEN 75 MG/DL (7-18); BUN/CREATININE RATIO 6.3 (6.6-38.0); CALCIUM 9.5 MG/DL (8.5-10.1); CHLORIDE 97 MMOL/L (99-107); GLUCOSE 100 MG/DL (70-104); SODIUM 138 MMOL/L (135-145); TOTAL PROTEIN 6.6 G/DL (6.4-8.2); eGFR 4 ML/MIN
--- NOTE | 2021-08-29 07:14 | NUR ---
PAGER ID: [phone] MESSAGE: [id number], Gio Pearson. potassium level of 6.0. please advise. Tawana ANDERSON [id number].
[2021-08-29] MEDS: albuterol 2.5 MG/3 ML nebule NEB SCH ×2 (07:26→21:00)
--- NOTE | 2021-08-29 07:42 | NUR ---
Paged Dr. Krause regarding pt needing consult by Dr. Youssef for dialysis. PAGER ID: [phone] MESSAGE: [id number], Gio Pearson. Dialysis nurse says they did not know pt was here, they said you need to call Dr. Youssef for consult. Tawana [facility] [id number].
[2021-08-29] MEDS: K and/or MAG REPLACEMENT MC SCH ×2 (08:00→19:41)
[2021-08-29] MEDS: lisinopril 20mg tablet PO SCH ×2 (08:00→19:21)
[2021-08-29] MEDS ORDERED: azithromycin/NS 500mg/250ml 250 ML IV SCH (08:00)
[2021-08-29] MEDS: NIFEdipine XL 30mg tablet PO SCH (08:00)
[2021-08-29] MEDS: atorvastatin 20mg tablet PO SCH (08:02)
[2021-08-29] MEDS: sevelamer carbonate 800mg tablet PO SCH ×3 (08:03→19:19)
[2021-08-29] MEDS: docusate sod 100mg capsule PO SCH ×2 (08:04→19:19)
[2021-08-29] MEDS: hydrALAZINE 25 MG tablet PO SCH ×2 (08:04→19:30)
[2021-08-29] MEDS: heparin, porcine 5000 units/ml vial SQ SCH ×2 (08:05→19:41)
[2021-08-29] MEDS ORDERED: heparin 1,000unit/ml 10ml vial 10 ML IV ONE (08:10)
[2021-08-29] MEDS ORDERED: EPOETIN ALFA-EPBX 20,000 UNIT/ML 1 ML MDV IV ONE (08:10)
[2021-08-29] MEDS ORDERED: heparin 1,000 units/ml 10ml inj IV ONE (08:10)
[2021-08-29] MEDS ORDERED: albumin (human) 25% 100ml IV 100 ML IV PRN (08:10)
[2021-08-29] MEDS ORDERED: regadenoson 0.4mg/5ml syringe IV PRN (09:15)
[2021-08-29] MEDS ORDERED: metoprolol tartrate 1mg/ml inj IV PRN (09:15)
[2021-08-29] MEDS ORDERED: nitroGLYCERIN 0.4mg SUBLingual tab SL PRN (09:15)
[2021-08-29] MEDS ORDERED: aminophylline 500mg/20ml vial IV PRN (09:15)
[2021-08-29] MEDS ORDERED: heparin 1,000 units/ml 10ml inj HE ONE ×2 (10:00)
--- NOTE | 2021-08-29 11:11 | NUR ---
Paged Dr. Krause regarding if she wants new troponins ordered. Patients trops are trending up as of yesterday. PAGER ID: [phone] MESSAGE: [id number], Gio Peasron. Patients troponins are trending up. Do you want a single troponin ordered or a series? Nuc med was asking for new trop level. Tawana [facility] 3910.
[2021-08-29 11:51] VITALS: BP 196/110
--- NOTE | 2021-08-29 13:30 | NUR ---
Paged Dr. Krause regarding positive blood cultures. PAGER ID: [phone] MESSAGE: [id number]. Positive blood culture, aerobic, gram positive cocci and clusters. Tawana [facility] 8013.
[2021-08-29] MEDS ORDERED: VANCOMYCIN 1GM/200ML IVPB 200 ML IV PRN (13:45)
[2021-08-29] MEDS ORDERED: VANCOMYCIN 1GM/200ML IVPB 200 ML IV ONE (13:45)
[2021-08-29 18:00] VITALS: BP 138/62
--- NOTE | 2021-08-29 18:24 | NUR ---
Problems reprioritized. Patient report given, questions answered & plan of care reviewed with Zahida CHOWDHURY, patient stable at transfer of care.
[2021-08-29 22:00] VITALS: BP 168/79
[2021-08-29] MEDS: metoprolol succinate 25mg (24-HOUR) SR. Tablet PO SCH (22:05)
[2021-08-30] MEDS: VANCOMYCIN LEVEL IV SCH (03:00)
[2021-08-30 06:00] VITALS: BP 157/75
--- NOTE | 2021-08-30 06:27 | NUR ---
Problems reprioritized. Patient report given, questions answered & plan of care reviewed with Tiffany CHOWDHURY.
[2021-08-30 06:39] LABS: BASOPHILS % (AUTO) 0.8 % (0-1); EOSINOPHILS # (AUTO) 0.3 X10'3 (0-0.9); EOSINOPHILS % (AUTO) 5.9 % (0-6); HEMATOCRIT 29.8 % (35.0-45.0); HEMOGLOBIN 9.9 g/dl (12.0-16.0); LYMPHOCYTES # (AUTO) 0.9 X10'3 (1.1-4.8); LYMPHOCYTES % (AUTO) 18.3 % (21-51); MEAN CORPUSCULAR HEMOGLOBIN 30.3 PG (27.0-31.0); MEAN CORPUSCULAR HGB CONC 33.2 g/dL (33.0-36.5); MEAN CORPUSCULAR VOLUME 91.4 FL (78-98); MEAN PLATELET VOLUME 9.1 FL (7.4-10.4); MONOCYTES # (AUTO) 0.4 X10'3 (0-0.9); MONOCYTES % (AUTO) 8.4 % (2-12); NEUTROPHILS # (AUTO) 3.3 X10'3 (1.8-7.7); NEUTROPHILS % (AUTO) 66.6 % (42-75); PLATELET COUNT 150 X10'3 (140-440); RED BLOOD COUNT 3.26 X10'6 (4.20-5.60); RED CELL DISTRIBUTION WIDTH 16.6 % (11.5-14.5)
[2021-08-30 07:04] LABS: ALANINE AMINOTRANSFERASE 11 U/L (12-78); ALBUMIN 2.9 G/DL (3.4-5.0); ALBUMIN/GLOBULIN RATIO 0.7 (1.1-1.5); ALKALINE PHOSPHATASE 82 IU/L (46-116); ANION GAP 13 (8-16); ASPARTATE AMINO TRANSFERASE 11 U/L (10-37); BILIRUBIN,TOTAL 0.5 MG/DL (0.1-1.0); BLOOD UREA NITROGEN 43 MG/DL (7-18); BUN/CREATININE RATIO 5.3 (6.6-38.0); CALCIUM 9.9 MG/DL (8.5-10.1); CHLORIDE 99 MMOL/L (99-107); CREATININE 8.17 MG/DL (0.40-0.90); GLUCOSE 99 MG/DL (70-104); POTASSIUM 5.2 MMOL/L (3.5-5.1); SODIUM 140 MMOL/L (135-145); TOTAL CARBON DIOXIDE 27.6 MMOL/L (24-32); TOTAL PROTEIN 7.1 G/DL (6.4-8.2); VANCOMYCIN,RANDOM 18.1 UG/ML; eGFR 6 ML/MIN
[2021-08-30] MEDS: K and/or MAG REPLACEMENT MC SCH ×2 (08:00→19:56)
[2021-08-30] MEDS: docusate sod 100mg capsule PO SCH ×2 (08:00→19:55)
[2021-08-30] MEDS ORDERED: levoFLOXACIN-Levaquin 250mg/D5 50 ML IV SCH ×2 (08:00→08:22)
[2021-08-30] MEDS: albuterol 2.5 MG/3 ML nebule NEB SCH ×2 (08:16→20:01)
[2021-08-30] MEDS: heparin, porcine 5000 units/ml vial SQ SCH ×2 (08:36→19:57)
[2021-08-30] MEDS: sevelamer carbonate 800mg tablet PO SCH ×3 (08:37→17:51)
[2021-08-30] MEDS: NIFEdipine XL 30mg tablet PO SCH (08:37)
[2021-08-30] MEDS: lisinopril 20mg tablet PO SCH ×2 (08:38→19:55)
[2021-08-30] MEDS: atorvastatin 20mg tablet PO SCH (08:38)
[2021-08-30] MEDS: hydrALAZINE 25 MG tablet PO SCH ×2 (08:39→19:55)
[2021-08-30 11:00] VITALS: BP 159/76
[2021-08-30 14:29] LABS: HBSAG SCREEN Negative (Negative)
[2021-08-30 15:00] VITALS: BP 135/67
[2021-08-30 18:00] VITALS: BP 145/72
[2021-08-30] MEDS: metoprolol succinate 25mg (24-HOUR) SR. Tablet PO SCH (22:28)
[2021-08-30 22:34] VITALS: BP 155/81
[2021-08-31] MEDS: VANCOMYCIN LEVEL IV SCH (03:00)
[2021-08-31 04:50] VITALS: BP 162/85
[2021-08-31 06:00] VITALS: BP 189/90
[2021-08-31] MEDS ORDERED: albumin (human) 25% 100ml IV 100 ML IV PRN (06:30)
[2021-08-31] MEDS ORDERED: EPOETIN ALFA-EPBX 20,000 UNIT/ML 1 ML MDV IV ONE (06:30)
[2021-08-31] MEDS ORDERED: heparin 1,000 units/ml 10ml inj IV ONE (06:30)
[2021-08-31] MEDS ORDERED: heparin 1,000unit/ml 10ml vial 10 ML IV ONE (06:30)
[2021-08-31] MEDS ORDERED: heparin 1,000 units/ml 10ml inj HE ONE ×2 (06:35)
--- NOTE | 2021-08-31 06:37 | NUR ---
Problems reprioritized. Patient report given, questions answered & plan of care reviewed with Tiffany CHOWDHURY.
[2021-08-31 06:58] LABS: BASOPHILS % (AUTO) 0.6 % (0-1); EOSINOPHILS # (AUTO) 0.5 X10'3 (0-0.9); EOSINOPHILS % (AUTO) 8.3 % (0-6); HEMATOCRIT 30.8 % (35.0-45.0); HEMOGLOBIN 10.1 g/dl (12.0-16.0); LYMPHOCYTES % (AUTO) 17.1 % (21-51); MEAN CORPUSCULAR HEMOGLOBIN 30.2 PG (27.0-31.0); MEAN CORPUSCULAR HGB CONC 32.8 g/dL (33.0-36.5); MEAN CORPUSCULAR VOLUME 92.2 FL (78-98); MEAN PLATELET VOLUME 9.4 FL (7.4-10.4); MONOCYTES # (AUTO) 0.5 X10'3 (0-0.9); MONOCYTES % (AUTO) 8.3 % (2-12); NEUTROPHILS # (AUTO) 3.7 X10'3 (1.8-7.7); NEUTROPHILS % (AUTO) 65.7 % (42-75); PLATELET COUNT 184 X10'3 (140-440); RED BLOOD COUNT 3.34 X10'6 (4.20-5.60); RED CELL DISTRIBUTION WIDTH 16.6 % (11.5-14.5); WHITE BLOOD COUNT 5.6 X10'3 (4.5-11.0)
[2021-08-31] MEDS: K and/or MAG REPLACEMENT MC SCH (08:00)
[2021-08-31] MEDS: docusate sod 100mg capsule PO SCH (08:00)
[2021-08-31] MEDS: albuterol 2.5 MG/3 ML nebule NEB SCH (08:17)
[2021-08-31] MEDS: sevelamer carbonate 800mg tablet PO SCH ×2 (08:55→13:13)
[2021-08-31] MEDS: heparin, porcine 5000 units/ml vial SQ SCH (08:55)
[2021-08-31] MEDS: NIFEdipine XL 30mg tablet PO SCH ×2 (08:56→15:00)
[2021-08-31] MEDS: lisinopril 20mg tablet PO SCH ×2 (08:56→15:01)
[2021-08-31] MEDS: atorvastatin 20mg tablet PO SCH (08:56)
[2021-08-31] MEDS: hydrALAZINE 25 MG tablet PO SCH (08:57)
[2021-08-31 10:17] LABS: ALANINE AMINOTRANSFERASE 10 U/L (12-78); ALBUMIN 2.9 G/DL (3.4-5.0); ALBUMIN/GLOBULIN RATIO 0.6 (1.1-1.5); ALKALINE PHOSPHATASE 78 IU/L (46-116); ANION GAP 14 (8-16); ASPARTATE AMINO TRANSFERASE 11 U/L (10-37); BILIRUBIN,TOTAL 0.4 MG/DL (0.1-1.0); BLOOD UREA NITROGEN 59 MG/DL (7-18); BUN/CREATININE RATIO 5.7 (6.6-38.0); CALCIUM 9.7 MG/DL (8.5-10.1); CHLORIDE 96 MMOL/L (99-107); CREATININE 10.44 MG/DL (0.40-0.90); GLUCOSE 121 MG/DL (70-104); POTASSIUM 4.5 MMOL/L (3.5-5.1); SODIUM 137 MMOL/L (135-145); TOTAL CARBON DIOXIDE 27.2 MMOL/L (24-32); TOTAL PROTEIN 7.6 G/DL (6.4-8.2); VANCOMYCIN,RANDOM 15.7 UG/ML; eGFR 4 ML/MIN
[2021-08-31 11:00] VITALS: BP 164/75
[2021-08-31 15:01] VITALS: BP_SYST 156
[2021-08-31] MEDS ORDERED: vancomycin inj 500 MG in normal saline 100ml IV soln 100 ML IV ONE (16:00)
--- NOTE | 2021-08-31 17:06 | NUR ---
pt. discharged, left unit at 1705
== END 2021-08-31 17:10 | disposition home or self-care (01) | DRG 193 ==
LOC: ER 00:11 → ED HOLD 02:31 → EDBEDREQ 03:28 → PCU 3S 12:45
PROVIDERS: ADMIT Internal Medicine; ATTEND Internal Medicine
PROC: 5A09357 Assistance with Respiratory Ventilation, Less than 24 Consecutive Hours, Continuous Positive Airway Pressure (ICD-10-PCS; 2021-08-28)
PROC: 5A1D70Z Performance of Urinary Filtration, Intermittent, Less than 6 Hours Per Day (ICD-10-PCS; principal; 2021-08-29)
PROC: 5A09357 Assistance with Respiratory Ventilation, Less than 24 Consecutive Hours, Continuous Positive Airway Pressure (ICD-10-PCS; 2021-08-29)
PROC: 5A1D70Z Performance of Urinary Filtration, Intermittent, Less than 6 Hours Per Day (ICD-10-PCS; 2021-08-31)
DX: J18.9 Pneumonia, unspecified organism (principal); J96.01 Acute respiratory failure with hypoxia; N18.6 End stage renal disease; I21.A1 Myocardial infarction type 2; R18.8 Other ascites; I12.0 Hypertensive chronic kidney disease with stage 5 chronic kidney disease or end stage renal disease; R78.81 Bacteremia; J90 Pleural effusion, not elsewhere classified; Z20.822 Contact with and (suspected) exposure to COVID-19; J98.01 Acute bronchospasm; D64.9 Anemia, unspecified; I27.81 Cor pulmonale (chronic); E87.5 Hyperkalemia; F32.A Depression, unspecified; K21.9 Gastro-esophageal reflux disease without esophagitis; E78.00 Pure hypercholesterolemia, unspecified; E78.5 Hyperlipidemia, unspecified; Z99.2 Dependence on renal dialysis; Z79.899 Other long term (current) drug therapy; Z86.73 Personal history of transient ischemic attack (TIA), and cerebral infarction without residual deficits; Z87.442 Personal history of urinary calculi; Z90.5 Acquired absence of kidney; Z88.8 Allergy status to other drugs, medicaments and biological substances; Z87.440 Personal history of urinary (tract) infections
CPT/HCPCS: 36415; 36600; 71045; 80053; 80202; 82803; 83605; 83735; 83880; 84132; 84484; 85018; 85025; 85730; 87040; 87077; 87186; 87340; 87635; 93005; 93306; 94640; 94660; 94760; 96365; 99291; C9803; G0257; G0378; J0280; J0456; J0696; J1644; J1956; J2150; J2785; J3370; Q4081

== ENCOUNTER → 2021-10-03 | Day surgery (SDC) | payer MEDICARE, MEDICAID ==
[2021-09-27 15:40] LABS: BASOPHILS % (AUTO) 0.9 % (0-1); EOSINOPHILS # (AUTO) 0.2 X10'3 (0-0.9); EOSINOPHILS % (AUTO) 4.4 % (0-6); LYMPHOCYTES # (AUTO) 1.5 X10'3 (1.1-4.8); LYMPHOCYTES % (AUTO) 35.3 % (21-51); MEAN CORPUSCULAR HEMOGLOBIN 29.8 PG (27.0-31.0); MEAN CORPUSCULAR HGB CONC 32.4 g/dL (33.0-36.5); MEAN PLATELET VOLUME 8.3 FL (7.4-10.4); MONOCYTES # (AUTO) 0.3 X10'3 (0-0.9); MONOCYTES % (AUTO) 6.6 % (2-12); NEUTROPHILS # (AUTO) 2.3 X10'3 (1.8-7.7); NEUTROPHILS % (AUTO) 52.8 % (42-75); PRE OP HEMATOCRIT 34.8 % (35.0-45.0); PRE OP HEMOGLOBIN 11.3 g/dL (12.0-16.0); PRE OP PLATELET COUNT 220 X10'3 (140-440); RED BLOOD COUNT 3.78 X10'6 (4.20-5.60); RED CELL DISTRIBUTION WIDTH 17.5 % (11.5-14.5)
[2021-09-27 16:00] LABS: ALBUMIN 3.5 G/DL (3.4-5.0); ALBUMIN/GLOBULIN RATIO 0.9 (1.1-1.5); ALKALINE PHOSPHATASE 94 IU/L (46-116); BLOOD UREA NITROGEN 32 MG/DL (7-18); BUN/CREATININE RATIO 4.5 (6.6-38.0); CALCIUM 10.3 MG/DL (8.5-10.1); CHLORIDE 101 MMOL/L (99-107); CREATININE 7.05 MG/DL (0.40-0.90); PRE OP ALT 13 U/L (30-65); PRE OP ANION GAP 10 (8-16); PRE OP AST 16 U/L (10-37); PRE OP BILIRUB, TOTAL 0.3 MG/DL (0.0-1.0); PRE OP GLUCOSE 104 MG/DL (70-104); PRE OP POTASSIUM 4.3 MMOL/L (3.4-5.1); PRE OP SODIUM 140 MMOL/L (135-145); TOTAL CARBON DIOXIDE 28.7 MMOL/L (24-32); TOTAL PROTEIN 7.4 G/DL (6.4-8.2); eGFR 7 ML/MIN
[~2021-10-03] VITALS: Ht 165.1 cm; Wt 87.0 kg
[~2021-10-03] MED LIST changes: +BUPIVAcaine 0.5% inj/PF 30 ML ONE; -CETI10TA19 PO; +DOCUMENT DATE & TIME OF BETA-BLOCKER PO ONE; +cefazolin/dext.iso 2gm/50ml IV ONE; +famotidine 20mg tablet PO ONE; +heparin 10,000 units/1 ML INJ ONE; +lidocaine 1%/epinephrine 1:100,000 inj. 50ml multi-dose vial ONE; +normal saline 1000ml 1,000 ML IV SCH
[2021-10-03 12:32] VITALS: BP 147/74
--- NOTE | 2021-10-03 14:50 | NUR ---
patient d/c per dr frank after veinous mapping redone to [facility] which showed functional fistula as discussed with dr frank and us techs. piv d/c and patient d/c home with [facility] with [facility]. she will follow up with primary md concerning next step of events
== END | disposition home or self-care (01) ==
LOC: PAS 10:48
PROVIDERS: ATTEND Surgery
DX: T82.858A Stenosis of other vascular prosthetic devices, implants and grafts, initial encounter (principal); Z53.8 Procedure and treatment not carried out for other reasons; I12.0 Hypertensive chronic kidney disease with stage 5 chronic kidney disease or end stage renal disease; N18.6 End stage renal disease; M19.90 Unspecified osteoarthritis, unspecified site; Z87.440 Personal history of urinary (tract) infections; Z20.822 Contact with and (suspected) exposure to COVID-19; Z79.899 Other long term (current) drug therapy; Y83.2 Surgical operation with anastomosis, bypass or graft as the cause of abnormal reaction of the patient, or of later complication, without mention of misadventure at the time of the procedure; Y92.89 Other specified places as the place of occurrence of the external cause
CPT/HCPCS: 36415; 80053; 82948; 85025; 93971; J1644; J3490; J7030; S0020; U0003; U0005

== ENCOUNTER 2021-10-29 11:14 | Day surgery (SDC) | payer MEDICARE, MEDICAID ==
[~2021-10-29] VITALS: Ht 165.1 cm; Wt 88.8 kg
[~2021-10-29 11:14] MED LIST changes: -BUPIVAcaine 0.5% inj/PF 30 ML ONE; -DOCUMENT DATE & TIME OF BETA-BLOCKER PO ONE; -LISI40TA13 PO; -cefazolin/dext.iso 2gm/50ml IV ONE; -famotidine 20mg tablet PO ONE; -heparin 10,000 units/1 ML INJ ONE; -lidocaine 1%/epinephrine 1:100,000 inj. 50ml multi-dose vial ONE; -normal saline 1000ml 1,000 ML IV SCH
[2021-10-29] MEDS ORDERED: PANT40TA54 PO (11:44)
[2021-10-29] MEDS ORDERED: NIFE90TA61 PO (11:44)
[2021-10-29] MEDS ORDERED: METO200T49 PO (11:44)
[2021-10-29] MEDS ORDERED: SEVE800T7 PO (11:44)
[2021-10-29 11:45] VITALS: BP 161/79
[2021-10-29] MEDS ORDERED: LISI40TA13 PO (11:45)
[2021-10-29] MEDS ORDERED: FOLI1TAB34 PO (11:50)
[2021-10-29] MEDS ORDERED: normal saline 1000ml 1,000 ML IV PRN (11:50)
[2021-10-29] MEDS ORDERED: CETI10TA19 PO (11:50)
[2021-10-29] MEDS ORDERED: LIDOCAINE 1% w/preservative (10 MG/ML) inj. 10mL VIAL ONE (13:41)
[2021-10-29] MEDS ORDERED: heparin 1,000unit/ml 10ml vial 10 ML ONE (14:18)
[2021-10-29 14:53] VITALS: BP 183/101
[2021-10-29 15:00] VITALS: BP 173/84
[2021-10-29 15:15] VITALS: BP 176/98
== END 2021-10-29 15:25 | disposition home or self-care (01) ==
LOC: SSTAY O 11:14
PROVIDERS: ATTEND Radiology Vascular & Interventional Radiology
DX: T82.49XA Other complication of vascular dialysis catheter, initial encounter (principal); N18.6 End stage renal disease; Z88.8 Allergy status to other drugs, medicaments and biological substances; Z79.899 Other long term (current) drug therapy; Z87.891 Personal history of nicotine dependence; Z72.89 Other problems related to lifestyle; Y83.8 Other surgical procedures as the cause of abnormal reaction of the patient, or of later complication, without mention of misadventure at the time of the procedure; Y92.89 Other specified places as the place of occurrence of the external cause
CPT/HCPCS: 36581; 77001; C1750; C1769; J1644; A9270

== ENCOUNTER 2022-01-17 11:56 | Day surgery (SDC) | payer MEDICARE, MEDICAID ==
[~2022-01-17] VITALS: Ht 165.1 cm; Wt 89.9 kg
[~2022-01-17 11:56] MED LIST changes: +CETI10TA19 PO; +FOLI1TAB34 PO; +LISI40TA13 PO; -METO-411 PO; +METO200T49 PO; -NIFE90TA2 PO; +NIFE90TA61 PO; +PANT40TA54 PO
[2022-01-17 12:15] VITALS: BP 130/67
[2022-01-17] MEDS ORDERED: normal saline 1000ml 1,000 ML IV PRN (12:15)
[2022-01-17] MEDS ORDERED: LIDOcaine 1%/PF 5ML 10 MG/ML VIAL ONE ×2 (13:39→13:40)
[2022-01-17] MEDS ORDERED: LIDOcaine 1%/PF 5ML 10 MG/ML VIAL IJ ONE (13:40)
--- NOTE | 2022-01-17 14:00 | NUR ---
Dr. Carlos at bedside to perform TDC removal procedure. Administered local anesthetic to right chest. Patient eager to get TDC out.
[2022-01-17 14:19] VITALS: BP 120/58
[2022-01-17 14:35] VITALS: BP 137/57
== END 2022-01-17 14:45 | disposition home or self-care (01) ==
LOC: SSTAY O 11:56
PROVIDERS: ATTEND Radiology Vascular & Interventional Radiology
DX: Z49.01 Encounter for fitting and adjustment of extracorporeal dialysis catheter (principal); E11.22 Type 2 diabetes mellitus with diabetic chronic kidney disease; I12.0 Hypertensive chronic kidney disease with stage 5 chronic kidney disease or end stage renal disease; N18.6 End stage renal disease; E78.5 Hyperlipidemia, unspecified; I10 Essential (primary) hypertension; Z99.2 Dependence on renal dialysis
CPT/HCPCS: 36589; J3490; A6258; A6449